=== PATIENT | female | born 1945 | race African-American/Black ===

== ENCOUNTER 2023-01-09 02:55 | Emergency (ER) | payer MEDICARE, BC ==
[~2023-01-09] VITALS: Ht 162.6 cm; Wt 68.0 kg
[~2023-01-09 02:55] MED LIST: ASPI-986 PO; CHOL100044 GT; MULT-1146 PO; SIMV-46 PO; TRIA1CAP35 PO; VALS160T2 PO
[2023-01-09 03:06] VITALS: O2SAT 97
[2023-01-09] MEDS ORDERED: ACETAMINOPHEN 325MG TABLET PO ONE (04:00)
[2023-01-09 04:15] LABS: BASOPHILS % 1.2 % (0.0-2.0); HEMATOCRIT. 36.2 % (36.0-48.0); HEMOGLOBIN. 12.2 g/dL (12.0-16.0); LYMPHOCYTES % 15.7 % (20.0-50.0); MEAN CORPUSCULAR HEMOGLOBIN 31.4 pg (28.0-32.0); MEAN CORPUSCULAR HGB CONC 33.8 g/dL (31.0-37.0); MEAN CORPUSCULAR VOLUME 93.1 fL (81.0-99.0); MONOCYTES % 12.7 % (2.0-8.0); NEUTROPHILS % 70.4 % (40.0-76.0); PLATELET 268 x1000/uL (130-400); RED BLOOD CELL COUNT 3.89 mill/uL (4.2-5.4); RED CELL DISTRIBUTION WIDTH 13.1 % (11.6-14.6); WHITE BLOOD COUNT 4.4 x1000/uL (4.5-11.0)
[2023-01-09 04:24] LABS: CHLORIDE 95 mEq/L (98-107); INDEX HEMOLYSI 1 (1-3); INDEX ICTERIC 1 (1-4); INDEX LIPEMIC 1 (1-3); POTASSIUM 3.1 mEq/L (3.5-5.1); SODIUM 129 mEq/L (136-145)
[2023-01-09 04:33] LABS: ALANINE AMINOTRANSFERASE 32 IU/L (13-61); ALBUMIN 4.6 g/dL (3.4-5.0); ASPARTATE AMINOTRANSFERASE 32 IU/L (15-37); BILIRUBIN TOTAL 0.4 mg/dL (0.1-1.0); CALCIUM 9.4 mg/dL (8.5-10.1); CARBON DIOXIDE 25 mEq/L (21-32); CREATININE 1.2 mg/dL (0.6-1.3); ETHANOL BLOOD < 10 mg/dL (-10); GLUCOSE 113 mg/dL (70-105); NT PRO B-TYPE NATRIURETIC PEP 140 pg/mL (5-125); PROTEIN TOTAL 8.7 g/dL (6.0-8.3); TROPONIN I HIGH SENSITIVITY 7 ng/L (<54); UREA NITROGEN BLOOD 14 mg/dL (7-21)
[2023-01-09] MEDS ORDERED: POTASSIUM CHLORIDE 20MEQ/PACKET PO NR (06:45)
[2023-01-09 07:19] VITALS: BP 126/82; PULSE 77; RESP 12; TEMP 98.2
[2023-01-09] MEDS ORDERED: TETANUS, DIPHTHERIA, PERTUSSIS VAC/PF 0.5ML (>10YR OLD) IM ONE (08:00)
== END 2023-01-09 07:20 | disposition left against medical advice (07) ==
LOC: ER 03:42 → CANBEDREQ 01-10 23:59
DX: S00.81XA Abrasion of other part of head, initial encounter (principal); E78.00 Pure hypercholesterolemia, unspecified; I10 Essential (primary) hypertension; R55 Syncope and collapse; Z79.899 Other long term (current) drug therapy; X58.XXXA Exposure to other specified factors, initial encounter; Y93.89 Activity, other specified; Y92.89 Other specified places as the place of occurrence of the external cause; Y99.8 Other external cause status
CPT/HCPCS: 36415; 70486; 71045; 80053; 80320; 83880; 84484; 85025; 86850; 86900; 93005; 99285; G0480